=== PATIENT | male | born 1975 | race Caucasian/White ===

== ENCOUNTER → 2016-12-26 | Outpatient (CLI) | payer BC ==
[~2016-12-26] MED LIST: HYDROCODON-ACE1 EAC7 PO; IBUPROFEN800 MG PO; TIZANIDINE HCL4 M1 PO
[2016-12-26 13:01] LABS: ALBUMIN SERUM 4.3 g/dL (3.5-5.0); BILIRUBIN,TOTAL 0.5 mg/dL (0.2-2.0); BUN/CREATININE RATIO 14.44; CALCIUM SERUM 9.4 mg/dL (8.4-10.2); CREATININE SERUM 0.9 mg/dL (0.6-1.4); GLOM FILT RATE Estimated 106.5 mL/min (>60); POTASSIUM 4.4 mmol/L (3.5-5.1); PROTEIN TOTAL SERUM 7.1 g/dL (6.0-8.3)
== END | disposition home or self-care (01) ==
LOC: CAMB 10:52
PROVIDERS: Specialist
DX: Z01.812 Encounter for preprocedural laboratory examination (principal); L72.3 Sebaceous cyst
CPT/HCPCS: 36415; 80053

== ENCOUNTER → 2017-01-01 | Day surgery (SDC) | payer BC ==
--- NOTE | ~2017-01-01 | OR ---
Unit #: [id number] #: [id number] Patient: ZAHRA LANDRY [id number] [facility] [address] [address] [facility]. [place], [place] [address] [id number] O MR#: [id number] NAME: ZAHRA LANDRY. ROOM: Date of Procedure: 01/01/2017 Admission Date: 01/01/2017 Surgeon: Erik Dexter M.D. : 1975 Attending Physician: Erik Dexter M.D. Primary Care Physician: Irene Kohli PROCEDURE OPERATIVE NOTE PREOPERATIVE DIAGNOSIS Longstanding and enlarging mass over the sternum consistent with grossly infected sebaceous cyst. POSTOPERATIVE DIAGNOSIS Longstanding and enlarging mass over the sternum consistent with grossly infected sebaceous cyst. PROCEDURE PERFORMED Excisional biopsy 4 x 4 cm sebaceous cyst. SURGEON Erik Dexter M.D. ANESTHESIA General endotracheal. ESTIMATED BLOOD LOSS 10 mL. INDICATIONS 41-year-old gentleman with a longstanding mass over the sternum that has recently begun to enlarge significantly. On examination, he had at least a 4 x 4 cm sebaceous cyst. There was no erythema or cellulitis but, due to the rapid enlargement, probably was infected. PROCEDURE The patient was admitted to [facility], positively identified and transported to the operating room and, after induction of general endotracheal anesthesia, he received weight based vancomycin. His chest wall hair was clipped and he was prepped and draped in the usual sterile fashion. 0.5% Marcaine with epinephrine was infiltrated in the skin and soft tissue around the lesion to create a field block. A wedge resection was performed and then skin flaps around the cyst wall were made and we dissected the cyst wall out of the soft tissue en bloc. We irrigated the wound with saline and cleaned the skin with saline and Betadine and then irrigated the wound with Betadine. The soft tissue was closed with 2-0 Vicryl interrupted suture and then the skin was reapproximated with 2-0 nylon interrupted sutures. Neosporin, Telfa and Tegaderm were placed as dressings. Sponge and needle counts were correct x3. The patient tolerated the procedure well and was transported to recovery in stable condition. Findings and postoperative instructions Unit #: [id number] #: [id number] Patient: ZAHRA LANDRY were discussed with his family. Dictated by... Gerard Cox/ghanshyam TD: 01/01/2017 09:18 JOB #: [id number] PROCEDURE OPERATIVE NOTE Page 1 of 1 X Erik Dexter MD PROCEDURE OPERATIVE NOTE
== END | disposition home or self-care (01) ==
LOC: CSUR 05:39
DX: L72.0 Epidermal cyst (principal); F17.210 Nicotine dependence, cigarettes, uncomplicated; Z79.1 Long term (current) use of non-steroidal anti-inflammatories (NSAID); Z87.442 Personal history of urinary calculi; Z79.891 Long term (current) use of opiate analgesic; Z79.899 Other long term (current) drug therapy
CPT/HCPCS: 88304; J2250; J2405; J3010; J3370